=== PATIENT | male | born 1965 | race Caucasian/White ===

== ENCOUNTER 2021-07-07 12:09 | Outpatient (RCR) | payer OTHER, SELFPAY ==
--- NOTE | 2021-07-07 13:04 | REHOPWC ---
SEATING EVALUATION NOTIFICATION This is to notify provider that Wolf Meléndez participated in a scooter power mobility device evaluation today. Recommendations were made specific to patient's needs. Seating Assessment documentation has been completed for detailed information on required equipment. The mobility device provider for this case is Rowdy from [employer]. Please note that no further care plan will be developed on this account. Thank you for referring this patient to [facility]. Please review, sign, date and return this discharge summary HAN. I have been updated about the patient's current status and I agree with discharge from the above service at this time. Referring Physician Date
== END 2021-07-08 08:17 | disposition home or self-care (01) ==
LOC: ANHPT 12:09
PROVIDERS: PCP Physician Assistant; Visit Provider Physician Assistant
DX: Z46.89 Encounter for fitting and adjustment of other specified devices (principal); I63.9 Cerebral infarction, unspecified
CPT/HCPCS: 97162

== ENCOUNTER 2024-12-11 09:57 | Outpatient (CLI) | payer OTHER, SELFPAY ==
--- NOTE | 2024-12-11 10:06 | ECG_ITS ---
Test Date: 2024-12-11 10:24:21 Measurements Intervals [place] Rate: 79 P: 68 KS: 159 QRS: 31 QRSD: 90 T: 13 QT: 354 QTc: 406 Interpretive Statements SINUS RHYTHM WITH OCCASIONAL VENTRICULAR PREMATURE COMPLEXES DELAYED PRECORDIAL R/S TRANSITION MINIMAL Q WAVES- INFERIOR LEADS BORDERLINE T WAVE ABNORMALITY- INF/HIGH LAT LEADS BASELINE ARTIFACT- I, II, III, AVR, AVL, AVF BORDERLINE ECG No previous ECG available for comparison Electronically Signed On 12-11-2024 10:37:51 CDT by Kashif Abdul D.O.
--- OUTSIDE RECORDS SUMMARY | 2024-12-11 11:01 | XMS_ITS | Clinical Summary ---
Author Organization [facility] Address [address] [place] [address] Care Team Providers Care Arc Welder Name Role Phone Mike Taylor APRN-ENVELOPE CUTTER Primary Care Provider Source Comments [facility],non-owned Affiliates and Associated Physician Practices is amultiple site organization consisting of ambulatory clinics and hospital sitesin [place], [place], [place]. This disclosure is being madepursuant to the Care Everywhere program and may not contain all information available regarding this patient. Last updated 18.[facility] Allergies No known active allergies Medications * Be aware that medications may not be up to date on this document. Alwaysverify current medications with the patient. clopidogrel (PLAVIX) 75 MG tabletIndication s:H/O ischemic left CROSSING WATCHMAN stroke,Status post placement of implantable loop recorder,PFO (patent foramen ovale) (HCC),Carpal tunnel syndrome of right wrist,Essential hypertension TAKE ONE TABLET BY MOUTH ONCE DAILY 30 tablet 5 04/04/20 20 Active Additional Information Patient not taking.Reported on 03/12/2021 amLODIPine (NORVASC) 5 MG tablet TAKE 1 TABLET BY MOUTH EVERY DAY 90 tablet 3 08/04/19 22 Active furosemide (LASIX) 20 MG tablet TAKE 1 TABLET BY MOUTH EVERY DAY 90 tablet 1 01/02/20 22 Active carvedilol (COREG) 12.5 MG tablet Take 12.5 mg by mouth 2 times daily with morning and evening meal Suspended atorvastatin (LIPITOR) 80 MG tablet Take 1 tablet by mouth at bedtime 30 tablet 3 10/25/19 19 Suspended VENTOLIN HFA 108 (90 Base) MCG/ACT inhaler 10/18/19 19 Suspended Alcohol Swabs (B-D SINGLE USE SWABS REGULAR) 11/12/19 19 Suspended TRUE METRIX BLOOD GLUCOSE TEST test strip 11/16/19 19 Suspended TRUEPLUS LANCETS 33G MISC 11/16/19 19 Suspended Albuterol Sulfate 108 (90 Base) MCG/ACT Inhale 180 mcg by mouth as needed Suspended metFORMIN (GLUCOPHAGE) 1000 MG tablet Take 1,000 mg by mouth 2 times daily Suspended losartan (COZAAR) 100 MG tablet Take 100 mg by mouth once daily 10/06/19 20 Suspended aspirin buffered (BUFFERIN LOW DOSE) 81 MG tablet Take 81 mg by mouth once daily Suspended WIXELA INHUB 250-50 MCG/DOSE inhaler 01/28/20 20 Suspended hydrOXYzine hcl (ATARAX) 10 MG tablet 01/22/20 20 Suspended sertraline (ZOLOFT) 50 MG tablet TAKE 1 TABLET BY MOUTH EVERY MORNING FOR 30 DAYS 01/28/20 20 Suspended cyclobenzaprine (FLEXERIL) 5 MG tablet Take 5 mg by mouth every 8 hours 08/03/19 21 Suspended naproxen (NAPROSYN) 500 MG tablet naproxen 500 mg tablet Suspended senna-docusate (SENEXON-S) 8.6-50 MG tablet Take 1 tablet by mouth once daily Suspended Active Problems Problem Noted Date Diagnosed Date MILTON (obstructive sleep apnea) 02/19/2020 Assessment & Plan (02/19/2020 10:08 AM CDT): Encouraged compliance with CPAP. SOB (shortness of breath) 12/20/2019 Assessment & Plan (02/19/2020 10:09 AM CDT): Suspect Multifactorial, Chronic Diastolic Heart Failure versus COPD versus untreated MILTON, and Obesity, versus arrhythmia versus drop in EF, Associated with lower extremity swelling and abominal swelling, PND an orthopnea, improved on Lasix 20mg daily, as pt was previously on this. Check ECHO to rule decreased in EF versus SOB being attributed to HFpEF. Assessment & Plan (12/20/2019 5:42 PM CDT): Suspect Multifactorial, Acute on Chronic Diastolic Heart Failure versus COPD, versus arrhythmia versus drop in EF, Associated with lower extremity swelling and abominal swelling, PND an orthopnea, resume Lasix 20mg daily, as pt was previously on this. Check ECHO to rule decreased in EF versus SOB being attributed to HFpEF. Acute on chronic diastolic heart failure 020 Assessment & Plan (05/20/2020 10:11 AM INTERPRETATIVE DANCER): With worsening SOB and volume overloaded. When seen. Will resume Lasix and I did ask that we re-check ECHO, he did not have that done. Continue 20mg daily of lasix and pt states his SOB and LLANOS are at baseline. ECHO when able, continue coreg and losartan. Assessment & Plan (02/19/2020 10:07 AM CDT): Improved, continue lasix 20mg daily. Check ECHO, Losartan and BB. Await ECHO to rule out worsening EF or valvular dysfucntion as contributing to his SOB. Assessment & Plan (12/20/2019 5:43 PM CDT): With worsening SOB and volume overloaded. Will resume Lasix and check ECHO. 20mg daily, BMP in one week. ECHO when able, continue coreg and losartan. PFO (patent foramen ovale) 02/15/2019 Assessment & Plan (05/20/2020 10:07 AM INTERPRETATIVE DANCER): Plans for closure in follow up with Dr. Solano. Assessment & Plan (02/19/2020 9:53 AM CDT): Plans for closure per Dr. Vivar. Assessment & Plan (12/20/2019 5:37 PM CDT): Plans for closure per Dr. Vivar. Assessment & Plan (10/11/2019 4:48 PM CDT): Discussed diagnosis and PFO closure procedure today again, and he recalls the essential details. He has not called to have this scheduled due to several personal and family issues that have arisen. He now wants us to proceed and we discussed that during the COVID period, we are not doing these types of procedures, but will call him and schedule when we are able to perform the procedures again. In the interim - he remains on plavix daily. Advised to continue Assessment & Plan (02/15/2019 3:43 PM CDT): Given recent stroke and GOPI proven PFO - believe that current evidence strongly supports percutaneous closure of the PFO to reduce subsequent stroke risk. Discussed this procedure with he and his today in detail. Following the procedure, would treat with asa 81 mg QD and clopidogrel 75 mg qd for 6 months, then decrease to 81 mg ASA qd. He states that he would like to think over this option and will call back to let us know if he wants to move forward. Cerebrovascular accident (CVA) 02/15/2019 Assessment & Plan (05/20/2020 10:09 AM INTERPRETATIVE DANCER): ASA, statin, and Plavix, plan PFO closure per Dr. Solano in follow up. Await Recs. Assessment & Plan (12/20/2019 5:45 PM CDT): ASA, statin, and Plavix, plan PFO closure when able do preform elective procedures gain in light of COVID-19. Status post placement of implantable loop record er 02/15/2019 Assessment & Plan (05/20/2020 10:08 AM INTERPRETATIVE DANCER): No events. Follow. Assessment & Plan (02/19/2020 10:05 AM CDT): No events. Assessment & Plan (12/20/2019 5:39 PM CDT): No data transmitted since 05/2019, will review with EP team in attempts to troubleshoot. Assessment & Plan (02/15/2019 3:45 PM CDT): No events noted since placement. Reminded them that this is placed for the potential of atrial fibrillation - if that would be detected, we would discuss other therapeutic options to decrease stroke risk. As it has not shown AF to date - no other indication for anticoagulation at this time. Weakness 10/21/2018 Cellulitis of left lower extremity 03/03/2018 Diabetes mellitus type 2 in obese 03/03/2018 Overview (10/05/2023): Last Assessment & Plan: A1c 7.3 02/2018. On home metformin. - Hold home metformin - LDSSI IMO Update October 2023 Essential hypertension 03/03/2018 Overview (02/15/2019): Last Assessment & Plan: Continue home coreg Assessment & Plan (05/20/2020 10:07 AM INTERPRETATIVE DANCER): Per Pt report his BP is closer to 130 at home. Continue Losartan 100mg daily, Coreg 12.5mg BID. Start Norvasc 5mg daily. Assessment & Plan (02/19/2020 10:04 AM CDT): Per Pt report his BP is closer to 120 at home, he has follow up with his PCP tomorrow. Continue Losartan 100mg daily, Coreg 125mg BID. Consider Norvasc 5mg daily if BP remains elevated. Assessment & Plan (12/20/2019 5:37 PM CDT): Pt does not have a BP cuff at home, continue current regimen. Chronic obstructive pulmonary disease 02/18/2011 Overview (02/15/2019): Last Assessment & Plan: On baseline 2 L home O2. Pt states not on any home inhalers. - Continue PRN albuterol - 2 L home O2 Encounters Date Type Department Care Team Description 03/03/2018 1:22 PM CDT - Present Hospital Encounter [facility] BED [facility] [address] [place] [address] Ghulam Mckay MD Internal Medicine from Last 3 Months Immunizations Immunization Administration Dates Next Due FLU VACCINE TRI IIV3 SPLIT P F IM (FLUVIRIN) 05/04/2012,03/05/2011,05/20/2010,2009 PNEUMOCOCCAL PPSV23 07/31/2009 Family History Medical History Relation Name Comments COPD - Chronic Obstructive Pulmonary Disease Father COPD - Chronic Obstructive Pulmonary Disease Mother CVA Mother Diabetes - Type 2 Mother Relation Name Status Comments Father Mother Social History Tobacco Use Types Packs/Day Years Used Date Smoking Tobacco: Former Cigarettes Q uit: 07/2009 Smokeless Tobacco: Never Alcohol Use Standard Drinks/Week Comments No 0 (1 standard drink = 0.6 oz pur e alcohol) Sex and Gender Information Value Date Recorded Sex Assigned at Not on file Legal Sex Male 1:20 PM CDT Gender Identity Not on file Sexual Orientation Not on file Occupation Industry Job Start Date Job End Date Disabled since 2009 Not on file Not on file Not on f ile Last Filed Vital Signs Vital Sign Reading Time Taken Comments Blood Pressure 150/82 03/12/2021 10:15 AM CDT Pulse 90 03/12/2021 10:15 AM CDT Temperature 36.2 C (97.2 F) 09/11/2020 8:53 AM INTERPRETATIVE DANCER Respiratory Rate 18 10/24/2018 3:57 PM CDT Oxygen Saturation 99% 03/12/2021 10:15 AM CDT 3 L o2 Inhaled Oxygen Concentration 28% 10/24/2018 1 0:00 AM CDT Weight 122.5 kg (270 lb) 03/12/2021 10:15 AM CDT Height 170.2 cm (5' 7) 03/12/2021 10:15 AM CDT Body Mass Index 42.29 03/12/2021 10:15 AM CDT Plan of Treatment Health Maintenance Due Date Last Done Comments COLOGUARD (AGES 45-75) - COLON CA SCREENING 1967 COLON MONITORING 1967 COLONOSCOPY - COLON CA SCREENING 1967 CT COLONOGRAPHY - COLON CA SCREENING 1967 Colorectal Cancer Screening 1967 FIT - COLON CA SCREENING 1967 FLEX SIG - COLON CA SCREENING 1967 HIV SCREENING 1982 HEPATITIS C SCREENING 07/11/1985 DTAP/TDAP/TD VACCINES (1 - Tdap) 1986 HEPATITIS B VACCINE (1 of 3 - 19+ 3-dose series) 1986 DIABETES-STATIN 2007 PNEUMOCOCCAL VACCINE 50+ (2 of 2 - PCV) 07/31/2010 07/31/2009 ZOSTER VACCINE (1 of 2) 2017 DIABETES RETINOPATHY SCREENING 02/15/2019 DIABETES-FOOT EXAM WITH MONOFILAMENT 02/15/2019 DIABETES-SERUM CREATININE 10/24/2019 10/23/2018, DIABETES-HGB A1C 08/12/2021 02/09/2021, , 03/03/2018, Additional history exists COVID-19 VACCINE ( season) 2024 DEPRESSION SCREENING 07/05/2024 DIABETES - URINE PROTEIN SCREENING 07/05/2024 10/23/2016 INFLUENZA VACCINE (Season Ended) 2025 05/04/2012, 03/05/2011, 05/20/2010, Additional history exists HIB VACCINE Aged Out No longer eligi ble based on patient's age to complete this topic HPV VACCINE Aged Out No longer eligi ble based on patient's age to complete this topic MENINGOCOCCAL (Group B) VACCINE SHARED DECISION-MAKING Aged Out No longer eligible based on patient's age to complete this topic MENINGOCOCCAL GROUPS A/C/Y/W VACCINE Aged Out No longer eligible based on patient's age to complete this topic Medical Devices Implanted Type Area Cut Off Saw Set Up Operator Device Identifier Shelf Expiration Date Model / Serial / Lot Sys Crd Mntr Rvl Linq [employer] Ins - [id number] Implanted:Qty: 1 on 11/02/2018 by Demar Solano MD at [facility] Chest [employer] 06/01/2019 LINQSYS / [id number] / Description:Reveal loop suleiman rder Procedures * The patient is currently admitted. The information in this section might not be complete until the patient is discharged. Procedure Name Priority Date/Time Associated Diagnosis Comments BASIC METABOLIC PANEL (CALCIUM TOTAL) STAT 10/23/2018 7:05 AM CDT HEMOGLOBIN A1C HAN 10/21/2018 9:31 AM CDT from Last 3 Months or Most Recently Relevant to Health Maintenance Results * (ABNORMAL) BASIC METABOLIC PANEL (CALCIUM TOTAL) (10/23/2018 7:05 AM CDT) BUN 12 7 - 26 mg/dL 10/23/2018 7:35 AM CDT [facility] Creatinine 0.8 0.6 - 1.2 mg/dL 10/23/2018 7:35 AM [facility] Sodium 137 136 - 145 mmol/L 10/23/2018 7:35 AM [facility] Potassium 4.3 3.5 - 4.5 mmol/L 10/23/2018 7:35 AM [facility] Chloride 97(L) 98 - 107 mmol/L 10/23/2018 7:35 AM [facility] CO2 30(H) 22 - 29 mmol/L 10/23/2018 7:35 AM [facility] Glucose 138(H) 70 - 115 mg/dL 10/23/2018 7:35 AM [facility] Calcium 9.6 8.4 - 10.2 mg/dL 10/23/2018 7:35 AM [facility] Anion Gap 14 8 - 18 10/23/2018 7:35 AM [facility] BUN/Creatinine Ratio 15 7 - 23 10/23/2018 7:35 AM [facility] Osmolality Calculated 286 270 - 300 mOsm/kg 10/23/2018 7:35 AM [facility] eGFR >60 >60 mL/min/1.7 3 m2 10/23/2018 7:35 AM [facility] Blood BLOOD SPECIMEN / Unknown Lab Venipuncture / Unknown 10/23/2018 7:05 AM T 10/23/2018 7:15 AM [facility] us Tere Salguero MD LAB - CHEMISTRY ORDERABLE S Final Result [address] [phone] * (ABNORMAL) HEMOGLOBIN A1C (10/21/2018 9:31 AM [facility]) Hemoglobin A1c 7.3(H) 4.4 - 6.3 % 10/21/2018 2:45 PM [facility] Estimated Average Glucose 163 mg/dL 10/21/2018 2:45 PM [facility] Comment: HbA1c Interpretation: Treatment target values recommended by ADA and other clinical organizations should be used to evaluate metabolic control in patients. Treatment Target Values: Normal : < 5.7% Pre-diabetes: 5.7-6.4% Diabetes: Equal to or greater than 6.5% Reference: [place] Diabetes Association Standards of Care in Diabetes -2014 In patients 70 years and older consider HbA1c target range of 7.0-7.5% Reference: Diabetes Mellitus in Older People: Position Statement on behalf of the International Association of Gerontology and Geriatrics (IAGG), the Diabetes Working Alliance Party for Older People (EDWPOP), and the International Task Force of Experts in Diabetes. Dario Cox et al. J [place] Medical Directors Association. 2012 Test results diagnostic of diabetes should be repeated for confirmation. The Sebia Capillary 2 assay for the measurement of HbA1c is a National Glycohemoglobin Standardization Program (NGSP)certified method. Blood BLOOD SPECIMEN / Unknown Venipuncture / Unknown 10/21/2018 9:31 AM CDT 10/21/2018 9:33 AM CDT Cisco Lion MD LAB - CHEMISTRY ORDERABLES Final Result Performing Organization Address City/State/[facility] Co de Phone Number [address] [phone] from Last 3 Months or Most Recently Relevant to Health Maintenance Insurance [facility] Advance Directives * Full Code (Latest Code Status on File) Date Activated Date Inactivated Comments 10/21/2018 8:40 AM 10/24/2018 7:15 PM Care Teams Arc Welder Relationship Specialty Start Date End Date Mike Taylor, GIS DATABASE ADMINISTRATOR-ENVELOPE CUTTER [address] [place] [address] PCP - General Nurse Practitioner 10/21/18
--- OUTSIDE RECORDS SUMMARY | 2024-12-11 11:01 | XMS_ITS | Clinical Summary ---
Author Organization [facility] Address [address] [address] Phone Care Team Providers Care Office Helper Name Role Phone Robert Taylor Primary Care Provider Allergies No known active allergies Medications Aspirin 81 MG Tablet Take 81 mg by mouth daily. Active metFORMIN (GLUCOPHAGE) 1000 MG Tablet Take 1,000 mg by mouth 2 times daily (with meals). Active carvedilol (COREG) 12.5 MG Tablet Take 12.5 mg by mouth 2 times daily. Active clopidogrel (PLAVIX) 75 MG Tablet Take 75 mg by mouth daily. Active atorvastatin (LIPITOR) 80 MG Tablet Take 80 mg by mouth nightly. Active insulin glargine (BASAGLAR KWIKPEN) 100 UNIT/ML Solution Pen-injector 10 Units by Subcutaneous route nightly. Active albuterol (VENTOLIN HFA) 108 (90 Base) MCG/ACT Aerosol Solution take 2 Puffs by inhalation every 4 hours as needed for Cough or Wheezing. Active OXYGEN CONCENTRATOR take 2 L by inhalation continuous. pt may use portable O2 tanks when not using O2 concentrator 9 Active OXYGEN TANK PORTABLE take 2 L by inhalation continuous. pt may use O2 concentrator when not using portable tanks 9 Active Social History Tobacco Use Types Packs/Day Years Used Date Smoking Tobacco: Never Assessed Sex and Gender Information Value Date Recorded Sex Assigned at Not on file Legal Sex Male 4:05 PM CDT Gender Identity Not on file Sexual Orientation Not on file Last Filed Vital Signs Vital Sign Reading Time Taken Comments Blood Pressure 144/88 11/18/2018 9:58 AM CDT Pulse 55 11/18/2018 9:58 AM CDT Temperature 36.5 C (97.7 F) 11/18/2018 9:58 AM CDT Respiratory Rate 20 11/18/2018 9:58 AM CDT Oxygen Saturation 92% 11/18/2018 9:5 8 AM CDT 2L of home oxygen Inhaled Oxygen Concentration - - Weight 115.2 kg (254 lb) 11/18/2018 9:5 8 AM CDT Height 170.2 cm (5' 7) 10/27/2018 3:50 PM CDT Body Mass Index 39.78 10/27/2018 3:50 PM CDT Plan of Treatment Not on file Insurance MEDICAID [employer] Advance Directives * Full Code (Latest Code Status on File) Date Activated Date Inactivated Comments 11/09/2018 10:19 AM Care Teams Office Helper Relationship Specialty Start Date End Date Robert Taylor PA [address] [place] [address] PCP - General Physician Break Off Worker 10/25/18
--- OUTSIDE RECORDS SUMMARY | 2024-12-11 11:01 | XMS_ITS | Encounter Summary ---
Author Organization [facility] Address [address] [place] [address] Care Team Providers Care Title Closer Name Role Phone Unavailable Primary Care Provider Unavailabl e Reason for Visit * Auth/Cert Specialty Diagnoses / Procedures Referred By Mehdi t Referred To Contact Diagnoses CELLULITIS Referral ID Status Reason Start Date Expiration Date Visits Re quested Visits Authorized [id number] 1 1 Encounter Details Date Type Department Care Team (Latest Contact Info) Description 03/03/2018 1:22 PM CDT - Present Hospital Encounter [facility] BED [facility]ANN[facility] [address] [place] [id number] Ghulam Mckay MD [address] [place] [address] Internal Medicine Social History Tobacco Use Types Packs/Day Years [...] Not on file Not on f ile documented as of this encounter Plan of Treatment Not on file documented as of this encounter Visit Diagnoses Diagnosis Cellulitis of left lower extremity- Primary Cellulitis and abscess of leg, except foot Cellulitis of left lower extremity Cellulitis and abscess of leg, except foot documented in this encounter
--- OUTSIDE RECORDS SUMMARY | 2024-12-11 11:01 | XMS_ITS | CONTINUITY OF CARE DOCUMENT ---
Author Name srini, srini Address Unknown Organization [facility] Address [address] [place] [address] Phone [phone] Care Team Providers Care Air Traffic Supervisor Name Role Phone Karin Dior MD Unavailable BEN HERNDON Unavailable [phone] BEN HERNDON Unavailable [phone] PROBLEMS Condition Status Date Provider Notes COPD active Sachin Myrick HTN active Karin Dior MD Hx of Cardiomyopathy active Karin mckay MD Sleep apnea, obstructive - on CPAP active Sandy Dior MD Diabetes mellitus active Karin Dior MD Hyperlipidemia active Karin Dior MD Obesity active Karin Dior MD PVC's active Karin Dior MD Tobacco use, quit active Ronal [facility] ENCOUNTERS Date Type Provider Location Encounter Diag nosis - In-person encounter Office Visit Karin Dior MD [place] [facility] - In-person encounter Office Visit Karin Dior MD [place] [facility] Hx of CardiomyopathySleep apnea, obstructive - on CPAPPVC'sTobacco use, quit - In-person encounter Office Visit Karin Dior MD [place] [facility] HTNHx of CardiomyopathySleep apnea, obstructive - on CPAPDiabetes mellitusHyperlipidemiaObesity VITAL SIGNS Date Observation Value Provider Body Mass Index (Ratio) 39.95 kg/m2 James Dior MD blood pressure, diastolic 80 mm[Hg] Yan louie Reyes blood pressure, systolic 140 mm[Hg] Vijaya dallas [place] oxygen saturation, oximetry 93 % [place] Reyes respiratory rate E&M 16 /min [place] Reyes pulse rate 70 /min [place] Reyes weight E&M 262.8 [lb_av] Constance Reyes height E&M 68 [in_i] [facility] Body Mass Index (Ratio) 40.44 kg/m2 Peña Colindres blood pressure, resting Yes Peña Colindres blood pressure, cuff size large Ke phillyi Silvestre blood pressure, diastolic 83 mm[Hg] Ke rri Silvestre blood pressure, systolic 143 mm[Hg] Alonso Rivers oxygen saturation, oximetry 93 % Anna Rivers respiratory rate E&M 16 /min Anna Anne [place] pulse rate 79 /min Anna June [facility] weight E&M 266 [lb_av] Anna June [facility] height E&M 68 [in_i] Anna June [facility] blood pressure, diastolic 106 mm[Hg] Ke rri Silvestre blood pressure, systolic 180 mm[Hg] Alonso ri Silvestre pulse rate 68 /min Anna Humphreye ahmet oxygen saturation, oximetry 95 % Anna Silvestre respiratory rate E&M 16 /min Anna G shakeel Body Mass Index (Ratio) 41.20 kg/m2 Pascal jackie Rivers weight E&M 271 [lb_av] Anna Humphreye lder height E&M 68 [in_i] Anna Watkins lder ALLERGIES No Known Drug Allergies HISTORY OF MEDICATION USE Medication Status Instructions Dates Provider Indications Com ments MAGNESIUM OXIDE 400 MG ORAL TABLET active ONE TAB TWICE A DAY Karin Dior MD LASIX 20 MG ORAL TABLET completed take one pill a day - Constance Reyes EQ OMEPRAZOLE TABLET DELAYED RELEASE completed take one cha day - [place] Reyes LIPITOR 20 MG ORAL TABLET completed take one pill a day - Constance Reyes METFORMIN HCL 1000 MG ORAL TABLET active One tablet twice a day Ronal Colindres LISINOPRIL 20 MG ORAL TABLET completed take onepill a day - Constance Reyes COREG 12.5 MG ORAL TABLET active take one pill twice a day Anna Rivers SOCIAL HISTORY Date Observation Value Provider social history E&M S moking History: Juanito purdy is a former smoker. Karin Dior MD social history reviewed E&M revi ewed - no changes required Karin Dior MD alcohol use no Constance [place] smoking, year quit 2009 Constance Bishop jesu number of years as a smoker 25 a Constance [place] smoking history, tot al pack/day [facility] Former smoker Constance [facility] social history reviewed E&M revi ewed - no changes required Ronal Colindres alcohol use no Anna bowers smoking, year quit 2009 Anna hernandez number of years as a smoker 25 a Anna Rivers smoking history, tot al pack/day 3 Ronal Colindres cigarette use yes Anna doss smoking status Former smoker Anna oliveira social history E&M Smoking Histo ry: P gurwinder is a former smoker. Karin Dior MD social history reviewed E&M revi ewed - no changes required Karin Dior MD alcohol use no Anna Watkins ahmeter number of years as a smoker 25 a Anna Silvestre smoking history, tot al pack/day 3ppd Anna Silvestre smoking, year quit 2009 Anna Valenzuela mary cigarette use yes Anna Tyserenityleslie doss smoking status Former smoker Anna Lares tee FAMILY HISTORY Family Member Condition Mother Family History of Hy pertension: Mother Family History of CV A or Stroke: INSURANCE PROVIDERS Payer name Policy type / Coverage type [place] [employer] [place] [employer] Medicaid [id number] ADVANCE DIRECTIVES Name Date DISCUSSED - NO DECISION MADE TREATMENT PLAN Date Name Performer Electrophysiology: T he following medications were removed from the medication list: Lisinopril 20 Mg Oral Tablet (Lisinopril) ..... Take onepill a day His updated medication list for this problem includes: Metformin Hcl 1000 Mg Oral Tablet (Metformin hcl) ..... One tablet twice a day Karin Dior MD Electrophysiology: T he following medications were removed from the medication list: Lipitor 20 Mg Oral Tablet (Atorvastatin calcium) ..... Take one pill a day Karin Dior MD Electrophysiology:Th e patient is using CPAP on a regular basis. The patient has been benefiting from therapy and should continue use. Karin Dior MD Electrophysiology: B P today: 140/80 P rior BP: 143/83 (08/07/2016) Karin Dior MD Electrophysiology: T he following medications were removed from the medication list: Lisinopril 20 Mg Oral Tablet (Lisinopril) ..... Take onepill a day His updated medication list for this problem includes: Coreg 12.5 Mg Oral Tablet (Carvedilol) ..... Take one pill twice a day Karin Dior MD Cardiology Follow up :Weight loss and exercise encouraged. Ronal Colindres Cardiology Follow up :Orders: S NOMED-CT: [id number] Current Medications Documented ([id number]) obile Cardiac Tele (CPT-53433) His updated medication list for this problem includes: Lasix 20 Mg Oral Tabs (Furosemide) ..... Take one pill a day Lisinopril 20 Mg Oral Tabs (Lisinopril) ..... Take onepill a day Coreg 12.5 Mg Oral Tabs (Carvedilol) ..... Take one pill twice a day Ronal Colindres Cardiology Follow up :BP today: 143/83 P rior BP: 180/106 (04/10/2016) His updated medication list for this problem includes: Lasix 20 Mg Oral Tabs (Furosemide) ..... Take one pill a day Lisinopril 20 Mg Oral Tabs (Lisinopril) ..... Take onepill a day Coreg 12.5 Mg Oral Tabs (Carvedilol) ..... Take one pill twice a day Ronal Colindres Cardiology Follow up :Orders: S NOMED-CT: [id number] Current Medications Documented ([id number]) E KG (CPT-33745) obile Cardiac Tele (CPT-90387) His updated medication list for this problem includes: Lisinopril 20 Mg Oral Tabs (Lisinopril) ..... Take onepill a day Coreg 12.5 Mg Oral Tabs (Carvedilol) ..... Take one pill twice a day Ronal Colindres Cardiology Follow up:On CPAP. Tim Colindres Cardiology Follow up :His updated medication list for this problem includes: Metformin Hcl 1000 Mg Oral Tabs (Metformin hcl) ..... One tablet twice a day Lisinopril 20 Mg Oral Tabs (Lisinopril) ..... Take onepill a day Ronal Colindres Cardiology Follow up Ronal flores [facility] [place] nt faxed 04/14/16:Has not had a sleep study in years and is not being treated at this time. Will repeat titration sleep study Karin Dior MD Cardiology Duglas Gilman nt faxed 04/14/16:His updated medication list for this problem includes: Glucophage Tabs (Metformin hcl tabs) ..... 1000mg take one pill twice daay Lisinopril 20 Mg Oral Tabs (Lisinopril) ..... Take onepill a day Karin Dior MD Cardiology Duglas Gilman faxed 04/14/16:His updated medication list for this problem includes: Lipitor 20 Mg Oral Tabs (Atorvastatin calcium) ..... Take one pill a day Karin Dior MD Cardiology Duglas Gilman faxed 04/14/16:Orders: Renal Artery Duplex (CPT-67160) BP today: 180/106 His updated medication list for this problem includes: Lasix 20 Mg Oral Tabs (Furosemide) ..... Take one pill a day Lisinopril 20 Mg Oral Tabs (Lisinopril) ..... Take onepill a day Coreg 12.5 Mg Oral Tabs (Carvedilol) ..... Take one pill twice a day Karin Dior MD Cardiology Duglas Gilman faxed 04/14/16:His last echo in 02/15 showed EF 55%. Will repeat echo Kairn Dior MD Date Name DLCO - 90299 FRC - 81003 FVC - 99547 ZIO Event Complete Echo Mobile Cardiac Tele Sleep Study Titratio n Renal Artery Duplex Complete Echo HISTORY OF PROCEDURES Procedure Date Procedure Name Provider Procedure Notes S tatus FVC / MVV with bronchodilator - 31938 Karin Dior MD completed BLOOD COUNT HEMOGLOBIN Karin ragland MD completed FRC - 69857 Karin ramirez MD completed SpO2 w/o 6min walk/titration Karin Dior MD completed DLCO - 11693 Karin ramirez MD completed EKG Karin ramirez MD completed SNOMED-CT: [id number] Current Medications Documented Karin Dior MD completed Event Monitor Karin ramirez MD completed SNOMED-CT: 43556369 Physical Exam, Performed: Pulse Exam of Foot Karin Dior MD completed EKG Karin ramirez MD completed SNOMED-CT: 721729165092415 Current Medications Documented Karin Dior MD completed SNOMED-CT: 65087344 Physical Exam, Performed: Pulse Exam of Foot Karin Dior MD completed EKG Karin ramirez MD completed SNOMED-CT: [id number] Current Medications Documented Karin Dior MD completed
[2024-12-11 11:18] LABS: Anion Gap 10 mmol/L (4-12); Blood Urea Nitrogen 15 mg/dL (9-20); Calcium 9.7 mg/dL (8.4-10.2); Carbon Dioxide 28 mmol/L (22-30); Chloride 98 mmol/L (98-107); Estimated Glomerular Filt Rate > 60; Glucose 119 mg/dL (65-110); Potassium 4.2 mmol/L (3.4-5.0); Sodium 136 mmol/L (137-145)
== END 2024-12-11 09:58 | disposition home or self-care (01) ==
PROVIDERS: Anesthesiology; PCP Internal Medicine Gastroenterology; Visit Provider Orthopaedic Surgery
DX: R94.31 Abnormal electrocardiogram [ECG] [EKG] (principal); E11.9 Type 2 diabetes mellitus without complications; F17.210 Nicotine dependence, cigarettes, uncomplicated
CPT/HCPCS: 36415; 80048; 93005

== ENCOUNTER 2024-12-18 01:08 | Day surgery (SDC) | payer OTHER, SELFPAY ==
[2024-12-07 14:58] VITALS: BMI 38.0
--- NOTE | 2024-12-07 14:59 | PC.NURSE ---
Report to the Outpatient Waiting Room, entrance under the green pavilion located off [facility], at time _0900_ on date _[id number]_. Planned Procedure Time: _1100_.? Time changes happen often and if your time is changed the preop area will call you the afternoon before. - You and your visitor will be asked to self-screen and do not enter if you have any COVID symptoms. Please call surgeon if you need to reschedule. - A mask is optional within the hospital at this time. Patients may have clear liquids (water, carbonated beverages, clear teas, apple juice) until 3 hours prior to surgery with a maximum of 20 ounces. - No food from midnight until time of surgery and no smoking, or chewing tobacco (or any form of nicotine). No chewing gum, candy or mints. Take only the following medications with a SIP of water on the morning of surgery: ___Keppra, Aripiprazole and advair.____ DO NOT STOP ANY OF YOUR OTHER PRESCRIPTION MEDICATIONS PRIOR TO SURGERY EXCEPT THE FOLLOWING Hold all vitamins and supplements for 3 days per anesthesiologist. Medications to discontinue per physician Date to take last dose Please no make-up, nail prydeinig, hairspray, perfume, deodorant, or body powder the day of surgery.? No jewelry (including any body piercings) or valuables the day of surgery, leave them at home.? Please take a shower or bath the night before, or the morning of, surgery with an antibacterial soap.? Wear comfortable, loose fitting clothing.? - Jewelry must be removed prior to entering the operating room.? Rings and piercings that are not removed may be cut off. - The hospital will not accept responsibility for valuables.? - Please leave all valuables, including medications, at home the day of surgery. If you are going home after surgery, a licensed p d driver must drive you home.? - NO public transportation without another adult if you receive anesthesia. - We recommend that an adult stay with you for 24 hours following discharge. - We also recommend that you do not drive, make important decision, drink alcoholic beverages, or take any drugs that were not prescribed by your health care provider for at least 24 hours after your discharge time. Follow any additional instructions given to you from your surgeon. Telephone instructions given to __Joe__and asked if any additional questions and then verbalized understanding. Patient advised to call surgeon office or pre surgery nurse liaison [phone] if any additional questions.
--- NOTE | 2024-12-14 09:06 | PM.IMHP ---
H&P: HPI History of Present Illness Date/Time: 12/14/24 09:06 Chief Complaint: Patient has right knee pain. He has catching locking mechanical type symptoms. His MRI scan shows a meniscal tear. He has failed conservative treatment like to proceed with arthroscopic intervention with a partial meniscectomy. Review of Systems Musculoskeletal: Musculoskeletal: Reports arthralgias, Reports joint swelling and Reports stiffness Neurologic: Reports abnormal gait [facility] Family History Family History Mother Cerebrovascular accident Grandparent Cerebrovascular accident Social History Social History (Updated 11/14/24 @ 10:46 by Shantal Banegas [facility]) Smoking packs per day: 3 Smoking cigarettes per day: 60.0 Years smoked: 29 Smoking pack-years: 87.00 Smoking status: Former smoker Tobacco type: cigarettes Smoking end date: 12/07/10 Alcohol intake: former Alcohol use details: 30 years. Substance use: current Substance use type: marijuana Other substance usage details: Daily Do You Feel Safe in your Home?: Yes Lack of Transportation: No Lack of Food: Sometimes True Current Housing: I Have Housing Concerned About Future Housing: No Difficulty Paying Gas/Electric Bills: No Difficulty Paying for Meds: No Currently Unemployed: No Education: High School Diploma/GED Difficulty w/ Childcare or Family Care: No Living arrangements: with family Spiritual care concerns: No Meds Home Medications and Allergies Home Medications ?Medication ?Instructions ?Recorded ?Confirmed ?Type albuterol sulfate 90 mcg/actuation 1 puff inhalation Q4H PRN 11/02/24 12/07/24 History aerosol inhaler (Ventolin HFA) shortness of breath or wheezing aripiprazole 2 mg tablet 2 mg PO DAILY 11/02/24 12/07/24 History atorvastatin 80 mg tablet (Lipitor) 80 mg PO DAILY 11/02/24 12/07/24 History empagliflozin 25 mg tablet 25 mg PO DAILY 11/02/24 12/07/24 History (Jardiance) fluticasone 250 mcg-salmeterol 50 1 inh inhalation BID 11/02/24 12/07/24 History mcg/dose blistr powdr for inhalation (Advair Diskus) levetiracetam 500 mg tablet 500 mg PO DAILY 11/02/24 12/07/24 History losartan 100 mg tablet 100 mg PO DAILY 11/02/24 12/07/24 History metformin 500 mg tablet 1,000 mg PO BID 11/02/24 12/07/24 History omeprazole 20 mg capsule,delayed 20 mg PO DAILY 11/02/24 12/07/24 History release Allergies Allergy/AdvReac Type Severity Reaction Status Date / Time No Known Allergies Allergy Unverified 12/07/24 14:44 Exam Narrative: On exam the patient is morbidly obese. He has catching locking and pain with his right knee. He has mechanical symptoms with any manipulation. He is tender along the joint line. He has a positive Nora's. Neurologically he is grossly intact. He walks with an antalgic gait. Knee X-Ray 11/02/24 Orthopedics Result Report 11/02/24 Assessment and Plan Assessment and plan (1) Acute medial meniscus tear of right knee: Code(s): S83.241A - Other tear of medial meniscus, current injury, right knee, initial encounter Status: Acute Assessment and Plan: Patient has a medial meniscal tear right. He has failed conservative treatment like to consider arthroscopic intervention. I have discussed this with him in detail including the risks, benefits, limitations, and alternatives. He understands would like to proceed. Of note is the fact he is morbidly obese with a BMI of 38. Which will make surgery more difficult and recovery more difficult as well. We will proceed with arthroscopy partial medial meniscectomy proceed as indicated as discussed. (2) Morbid obesity: Code(s): E66.01 - Morbid (severe) obesity due to excess calories Status: Acute
[2024-12-18] VITALS (7 sets, daily range): BP systolic 112–149; BP diastolic 59–75; PULSE 67–86; RESP 14–18; TEMP 36.2–36.6; O2SAT 90–100
--- OUTSIDE RECORDS SUMMARY | 2024-12-18 01:10 | XMS_ITS | Clinical Summary ---
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 Name Role Phone Unavailable Primary Care Provider Unavailabl e Social History Tobacco Use Types Packs/Day Years Used Date Smoking Tobacco: Never Assessed Sex and Gender Information Value Date Recorded Sex Assigned at Not on file Legal Sex Male 9:42 PM CDT Gender Identity Not on file Sexual Orientation Not on file Last Filed Vital Signs Vital Sign Reading Time Taken Comments Blood Pressure 137/77 09/09/2015 8:48 AM [facility] Pulse 80 09/09/2015 8:48 AM [facility] Temperature - - Respiratory Rate - - Oxygen Saturation - - Inhaled Oxygen Concentration - - Weight 128.4 kg (283 lb) 09/09/2015 8:48 AM [facility] Height 170.2 cm (5' 7) 09/09/2015 8:48 AM [facility] Body Mass Index 44.32 09/09/2015 8:48 AM [facility] Plan of Treatment Health Maintenance Due Date Last Done Comments Colorectal Cancer Screening Colonoscopy (10 Years) 1967 Annual Physical 1970 Hepatitis C 1985 DTaP, Tdap and Td Vaccines ( 1 - Tdap) 1986 Hepatitis B Vaccines (1 of 3 - 19+ 3-dose series) 1986 Pneumococcal Vaccine: 50+ Ye ars (1 of 1 - PCV) 2017 Zoster Vaccines (1 of 2) 2017 COVID-19 Vaccine ( - 2023-2 5 season) 2024 Meningococcal B Vaccine Aged Out No l onger eligible based on patient's age to complete this topic Meningococcal Vaccine Aged Out No dagoberto mikki eligible based on patient's age to complete this topic RSV Immunizations Under 20 Months Aged Out No longer eligible based on patient's age to complete this topic
--- OUTSIDE RECORDS SUMMARY | 2024-12-18 01:10 | XMS_ITS | Encounter Summary ---
Author Organization [facility] Address [address] [place] [address] Care Team Providers Care Director Of Casino Marketing Name Role Phone Unavailable Primary Care Provider Unavailabl e Reason for Visit * Auth/Cert Specialty Diagnoses / Procedures Referred By Mehdi t Referred To Contact Diagnoses CELLULITIS Referral ID Status Reason Start Date Expiration Date Visits Re quested Visits Authorized [id number] 1 1 Encounter Details Date Type Department Care Team (Latest Contact Info) Description 03/03/2018 1:22 PM CDT - Present Hospital Encounter [facility] [address] [place] [id number] Ghulam Mckay MD [address] [place] [address] Internal Medicine Social History Tobacco [...]
--- OUTSIDE RECORDS SUMMARY | 2024-12-18 01:10 | XMS_ITS | Data Portability ---
Author Organization [facility] ([employer]) [facility], Main Office Address [address] [place] [address] Care Team Providers Care Cloth Printing Back Tender Name Role Phone ADAM HONEYCUTT Primary Care Provider ADAM HONEYCUTT Referring Provider Assessment Encounter Date Assessment Date Assessment LastModified by Organization Details LastModified Time 05/01/2024 05/01/2024 This note is dictated and transcribed by Identified Software. Soil Technician variances may occur. Despite proofreading, typographical errors may occur. Occasional wrong-word or 'hhept-h-sxjw' substitutions may have occurred due to the inherent limitations of voice recording. Read the chart carefully and recognize, using context, where substitutions have occurred. Not available 05/01/2024 11:27:32 05/08/2024 05/08/2024 This note is dictated and transcribed by [employer] Software. Soil Technician variances may occur. Despite proofreading, typographical errors may occur. Occasional wrong-word or 'woeec-b-arbj' substitutions may have occurred due to the inherent limitations of voice recording. Read the chart carefully and recognize, using context, where substitutions have occurred. Not available 05/08/2024 11:18:48 08/17/2024 08/17/2024 This note is dictated and transcribed by [employer] Software. Soil Technician variances may occur. Despite proofreading, typographical errors may occur. Occasional wrong-word or 'hxqot-w-rucb' substitutions may have occurred due to the inherent limitations of voice recording. Read the chart carefully and recognize, using context, where substitutions have occurred. Not available 08/22/2024 10:29:20 11/23/2024 11/23/2024 This note is dictated and transcribed by [employer] Software. Soil Technician variances may occur. Despite proofreading, typographical errors may occur. Occasional wrong-word or 'oknpj-h-iism' substitutions may have occurred due to the inherent limitations of voice recording. Read the chart carefully and recognize, using context, where substitutions have occurred. Not available 11/23/2024 11:06:38 Plan of Treatment Reminders Order Date Submit Date Provider Last Modified By Organization Details Last Modified Time Details Appointments Establish ed Patient 15 2024 10:00A M Anshu Wiley DPM Not available Not available Not available Lab None recorded. Referral None recorded. Procedures None recorded. Surgeries None recorded. Imaging None recorded. Medication Orders mometason e 0.1 % topical cream 2024 025 YAIMA [facility] [id number], [address], 08/24/2024 14:39:59 gentamici n 0.1 % topical cream 2023 024 [email or web address] [facility] [id number] [id number] [place], [address], 08/17/2024 11:05:31 Patient TargetsNo targets recorded. Patient Instructions Encounter Date Encounter Id Patient Instructions Last Modified By Organization Details Last Modified Time 08/24/2024 [id number] discussed findin g of external auditory eczema with patient. Prescribed mometasone to be applied topically once a day for symptom management. If symptoms continue to persist follow-up for a re-evaluation. Not available 08/24/2024 14:40:23 Reason for Referral None Reported. Problems Name Problem SNOMED Code Status Onset Date Resolution Date Notes Provider Name and Address Organization Details Recorded Time Pain of left hip joint 29749969737 9100 Active 2022 Not Available [facility] 3 19:21:00 Trochante mimi bursitis of left hip 11557017784 9103 Active 2022 Not Available [facility] 3 19:21:00 Ingrowing nail of toe of right foot 62124569795 697584 Active 2022 Anshu Wiley DPM [address] [facility], [facility] [address], [place], [address] , [facility] 3 10:49:47 Obese 336175829 Active 2023 Anshu Wiley DPM [address], [place], [address] , [facility] 4 10:27:30 Umbilical hernia 184617848 Active 2023 Anshu Wiley DPM [address], [place], [address] , [facility] 4 10:10:19 Celluliti s of right foot 92329350230 657802 Active 2023 Anshu Wiley DPM [address], [place], [address] , [facility] 4 11:35:16 Open wound of toe of right foot 78325528002 342648 Active 2023 Anshu Wiley DPM [address], [place], [address] , [facility] 4 10:52:45 Eczema of external auditory canal 22133857 Active 2024 MAUDE Middleton [address] [address], [place], [address] , [facility] 5 14:39:26 Porokerat osis 674419561 Active 2024 Anshu Wiley DPM [address], [place], [address] , [facility] 5 11:06:43 Pain in left foot 37704457225 9107 Active 2024 Anshu Wiley DPM [address], [place], [address] , [facility] 5 11:06:48 Disorder of lung 66680232 Completed 202002/20/2021 Not Available [facility] 3 04:36:31 Pain in toe 809592149 Active 2020 Not Available [facility] 3 19:21:00 Heart disease 06360186 Active 2020 Not Available [facility] 3 19:21:00 Carpal tunnel syndrome 12092405 Active Not Available [facility] 3 19:21:00 Tinea pedis 1449252 Active 2021 Not Available [facility] 3 19:21:00 Diabetes mellitus 46703338 Active 2020 Not Available [facility] 3 19:21:00 Dystrophi a unguium 05587149 Active 2020 Not Available [facility] 3 19:21:01 Notes:Medical History: 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 Procedures Surgical History Date Name Laterality Status Provider Name and Address Organization Details Recorded Time 5 Nail Debridement completed Anshu Wiley DPM [address], [place], [address], [employer] 11/23/2024 11:07:33 5 Callus Debridement, One completed Anshu Wiley DPM [address], [address], [place], [address], [employer] [facility] 11/23/2024 11:07:38 5 Nail Debridement completed Anshu Wiley DPM [address], [place], [address], [employer] [facility] 08/22/2024 10:32:14 4 Toenail avulsion completed Anshu Wiley DPM [address], [place], [address], [facility] 04/17/2024 11:33:31 4 Partial Nail Avulsion Chemical Matrixectomy-Ri ght completed Anshu Wiley DPM [address], [place], [address], [facility] 04/04/2024 15:50:35 4 Nail Debridement completed Anshu Wiley DPM [address], [place], [address], Valentin Uzhun [facility] 01/17/2024 10:18:31 4 Nail Debridement completed Anshu Wiley DPM [address], [place], [address], [employer] - [facility] 10/18/2023 10:27:22 3 Nail Debridement completed Anshu Wiley DPM [address], [place], [address], [employer] - [facility] 06/16/2023 14:15:23 3 Nail Debridement completed Anshu Wiley DPM [address], [place], [address], [facility] 03/15/2023 10:49:39 3 Nail Debridement completed Anshu Wiley DPM [address], [place], [address], [facility] 12/07/2022 15:01:15 3 Ortho - Cortisone Injection completed Otoniel Taylor MD [address], [place], [address], [facility] 11/10/2022 13:59:59 3 Ortho - Cortisone Injection completed Otoniel Taylor MD [address], [place], [address], [facility] [employer] [facility] 10/13/2022 14:05:41 Carpal tunnel surgery [facility] [employer] [facility] 10/13/2022 13:59:39 Imaging Results None recorded. Procedure Notes None recorded. Medical Equipment None Reported. Allergies No known drug allergies Medications Name Sig Start Date Stop Date Status Note LastModified by Organization Details LastModified Time atorvastati n 80 mg tablet TAKE 1 TABLET BY MOUTH EVERY DAY active Not Available Not Available No t Available prednisone 10 mg tablet TAKE 1 TABLET BY MOUTH TWICE A DAY FOR 10 DAYS active Not Available Not Available No t Available atorvastati n 20 mg tablet 04/11 completed Not Available Not Available Not Available carvedilol 12.5 mg tablet TAKE 1 TABLET BY MOUTH TWICE A DAY 10/17 completed Not Available Not Available Not Available albuterol sulfate 2.5 mg/3 mL (0.083 %) solution for nebulizatio n INHALE 3 ML BY NEBULIZAT ION 3 TIMES A DAY active Not Available Not Available No t Available levetiracet am 500 mg tablet TAKE 1 TABLET BY MOUTH TWICE A DAY active Not Available Not Available No t Available hydrocodone 5 mg-acetamin ophen 325 mg tablet 04/11 completed Not Available Not Available Not Available lisinopril 20 mg tablet 04/11 completed Not Available Not Available Not Available clindamycin HCl 150 mg capsule 02/20 completed Not Available Not Available Not Available cyanocobala min (vit B-12) 1,000 mcg tablet Take 1 tablet every day by oral route. 10/13 completed Not Available Not Available Not Available clopidogrel 75 mg tablet 10/13 completed Not Available Not Available Not Available amlodipine 5 mg tablet TAKE 1 TABLET BY MOUTH EVERY DAY 10/13 completed Not Available Not Available Not Available prednisone 10 mg tablets in a dose pack Take 1 tab by mouth, 3 times a day for 3 daysTake 1 tab by mouth 2 times a day for 2 daysTake 1 tab by mouth once a day for 1 day 01/16 completed Not Available Not Available Not Available magnesium oxide 400 mg (241.3 mg magnesium) tablet TAKE 1 TABLET BY MOUTH EVERY DAY 10/13 completed Not Available Not Available Not Available Kenalog 10 mg/mL suspension for injection Take 20 mg by injection route. 10/17 completed [facility]: 0003- 0494- 20 Not Available Not Available Not Available cephalexin 500 mg capsule 04/11 completed Not Available Not Available Not Available metformin 1,000 mg tablet TAKE 1 TABLET BY MOUTH TWICE A DAY BEFORE MEALS active Not Available Not Available No t Available promethazin e 25 mg tablet 04/11 completed Not Available Not Available Not Available Advair Diskus 250 mcg-50 mcg/dose powder for inhalation INHALE 1 PUFF BY MOUTH TWICE A DAY DIRECTED active Not Available Not Available No t Available omeprazole 20 mg capsule,del ayed release TAKE 1 CAPSULE BY MOUTH TWICE DAILY 30 MINUTES BEFORE A MEAL active Not Available Not Available No t Available gentamicin 0.1 % topical cream APPLY A SMALL AMOUNT TO THE AFFECTED AREA ON GREAT TOE WOUND 3 TIMES PER DAY 08/17 completed Not Available Not Available Not Available aspirin 81 mg chewable tablet CHEW ONE TABLET BY MOUTH DAILY active Not Available Not Available No t Available furosemide 20 mg tablet TAKE 1 TABLET BY MOUTH EVERY DAY 08/17 completed Not Available Not Available Not Available diazepam 10 mg tablet TAKE 1 TABLET BY MOUTH 1 HOUR BEFORE PROCEDURE , MAY REPEAT 1 TIME NEEDED FOR ANXIETY active Not Available Not Available No t Available albuterol sulfate HFA 90 mcg/actuati on aerosol inhaler INHALE 2 PUFFS BY MOUTH THREE TIMES A DAY NEEDED *USE A RESCUE INHALER ONLY* active Not Available Not Available No t Available ketoconazol e 2 % topical cream APPLY TO THE BOTTOM OF BOTH FEET DAILY NEEDED 10/13 completed Not Available Not Available Not Available hydroxyzine HCl 10 mg tablet TAKE 1 TABLET BY MOUTH THREE TIMES A DAY DIRECTED 08/17 completed Not Available Not Available Not Available losartan 100 mg tablet TAKE 1 TABLET BY MOUTH EVERY DAY IN THE MORNING active Not Available Not Available No t Available sertraline 50 mg tablet TAKE 1 TABLET BY MOUTH EVERY MORNING FOR 30 DAYS 06/10 completed Not Available Not Available Not Available naproxen 500 mg tablet active Not Available Not Available Not Available mometasone 0.1 % topical cream APPLY A THIN LAYER TO THE AFFECTED AREA(S) ONCE DAILY active Not Available Not Available No t Available amoxicillin 500 mg-potassiu m clavulanate 125 mg tablet TAKE 1 TABLET BY MOUTH EVERY 12 HOURS FOR 10 DAYS DIRECTED FOR TOE INFECTION 05/01 completed Not Available Not Available Not Available neomycin 3.5 mg/g-polymy florencia B 10,000 unit/g-dexa meth 0.1 % eye oint APPLY TO LEFT EYE 3 TIMES A DAY FOR 5 DAYS 08/17 completed Not Available Not Available Not Available cyclobenzap rine 5 mg tablet 10/13 completed Not Available Not Available Not Available Alcohol Prep Pads USE TWICE DAILY active Not Available Not Available No t Available albuterol 08/01 completed Not Available Not Available Not Available aripiprazol e 2 mg tablet TAKE 1 TABLET BY MOUTH EVERY DAY active Not Available Not Available No t Available Januvia 100 mg tablet TAKE 1 TABLET BY MOUTH EVERY DAY IN THE MORNING FOR 30 DAYS active Not Available Not Available No t Available Symbicort 160 mcg-4.5 mcg/actuati on HFA aerosol inhaler 04/11 completed Not Available Not Available Not Available GaviLyte-N 420 gram oral solution 04/11 completed Not Available Not Available Not Available Senexon-S 8.6 mg-50 mg tablet 08/17 completed Not Available Not Available Not Available ropivacaine (PF) 5 mg/mL (0.5 %) injection solution Take 20 mg by injection route. 10/17 completed Not Available Not Available Not Available Miconazorb AF 2 % topical powder APPLY TO THE AFFECTED AREA(S) BY TOPICAL ROUTE 2 TIMES PER DAY IN THE MORNING AND EVENING 10/17 completed Not Available Not Available Not Available OneTouch Verio test strips TEST TWICE DAILY FOR UNCONTROL LED DIABETES MELLITUS active Not Available Not Available No t Available Jardiance 10 mg tablet TAKE 1 TABLET BY MOUTH EVERY DAY active Not Available Not Available No t Available Jardiance 25 mg tablet TAKE 1 TABLET BY MOUTH EVERY DAY active Not Available Not Available No t Available Basaglmariel MosquedaikPen U-100 Insulin 100 unit/mL (3 mL) subcutaneou s 10/13 completed Not Available Not Available Not Available OneTouch Delica Plus Lancet 33 gauge USE TWICE DAILY DIRECTED active Not Available Not Available No t Available Vitals Date Recorded Body height Body mass index (BMI) Body weight Heart rate Respiratory rate Oxygen saturation Oxygen saturation in Arterial blood by Pulse oximetry Systolic blood pressure Diastolic blood pressure Provider Name and Address Organization Details Last Updated DateTime 5 170.18 cm 42.3 kg/m2 999848. 94 g 89 /min 14 /min 98 % 98 % 127 mm[Hg] 74 mm[Hg] Radha Shaw [facility] [employer] [facility] 5 11:12:05 Date Recorded Body height Body mass index (BMI) Body weight Body temperature Provider Name and Address Organization Details Last Updated DateTime 08/24/2024 170.18 cm 40.1 kg/m2 085213.37 g 97.8 [degF] Yadira Parada RN [facility] [employer] [facility] 08/24/2024 14:16:33 Date Recorded Body height Body mass index (BMI) Body weight Heart rate Respiratory rate Oxygen saturation Oxygen saturation in Arterial blood by Pulse oximetry Systolic blood pressure Diastolic blood pressure Provider Name and Address Organization Details Last Updated DateTime 5 170.18 cm 40.1 kg/m2 735217. 65 g 95 /min 14 /min 98 % 98 % 143 mm[Hg] 79 mm[Hg] Radha Shaw [facility] [employer] [facility] 5 10:50:32 Date Recorded Body height Body mass index (BMI) Body weight Heart rate Respiratory rate Oxygen saturation Oxygen saturation in Arterial blood by Pulse oximetry Systolic blood pressure Diastolic blood pressure Provider Name and Address Organization Details Last Updated DateTime 4 170.18 cm 42.3 kg/m2 594486. 94 g 82 /min 14 /min 98 % 98 % 135 mm[Hg] 84 mm[Hg] Radha Shaw [facility] [employer] [facility] 4 10:41:51 Date Recorded Body height Body mass index (BMI) Body weight Heart rate Respiratory rate Oxygen saturation Oxygen saturation in Arterial blood by Pulse oximetry Systolic blood pressure Diastolic blood pressure Provider Name and Address Organization Details Last Updated DateTime 4 170.18 cm 42.3 kg/m2 036056. 94 g 94 /min 14 /min 98 % 98 % 155 mm[Hg] 84 mm[Hg] Radha Shaw [facility] [employer] [facility] 4 10:53:35 Social History Question Answer Notes LastModified by Organizat ion Details LastModified Time Tobacco Smoking Status Former Smoker QUIT 12 YEARS AGO Yadira Parada RN null, [place] [facility] 08/24/2024 14:14:26 When Did You Quit Smoking? 11-15yearss [email or web address] [email or web address] [email or web address] Information not available 08/24/2024 Sex: Unknown Functional Status Question Answer Note LastModified by Organization D etails LastModified Time What is your level of alcohol consumption? None Information not available 10/13/2022 Mental Status None recorded. Family History Relationship Description Onset Age of this Age Resolved Age Notes LastModified by Organization Details LastModified Time Mother Family history of stroke [email or web address] Not available 2022 13:59:02 Mother Diabetes mellitus [email or web address] Not available 2022 13:59:11 Brother Hernia of anterior abdominal wall [email or web address] Not available 02/03 11:09:42 Son Nasal septoplasty [email or web address] Not available 08/06 14:13:11 Medical History Condition Response USE OF BLOOD THINNERS Y OBESITY Y HEART DISEASE/HEART PROBLEMS Y DIABETES, TYPE Y LUNG DISEASE/DISORDER Y HYPERTENSION Y COPD Y STROKE/TIA Y HIGH CHOLESTEROL / HYPERLIPIDEMIA Y Past Encounters Encounter ID Performer Location Encounter Start Date Encounter Closed Date Diagnosis/Indication Diagnosis SNOMED-CT Code Diagnosis ICD10 Code Diagnosis Note [id number] MD ALETA Brownlee[facility] [address] 02/25/2021 00:00:00 02/25/2021 12:42:50 [id number] Jose Luis Ivey MD [facility] [address] 06/10/2021 00:00:00 06/10/2021 11:46:46 [id number] MD ALETA [facility]lee[facility] [address] 06/24/2021 00:00:00 06/24/2021 11:39:50 [id number] MD RUBÉN Brownlee[facility] [address] 09/22/2021 00:00:00 09/22/2021 11:14:58 [id number] [facility] _ATHENA_M IGRATION_ DEFAULT_1 _1 , 10/31/2021 00:00:00 10/31/2021 11:56:07 [id number] [facility] _ATHENA_M IGRATION_ DEFAULT_1 _1 , 01/30/2022 00:00:00 01/30/2022 11:30:21 [id number] Otoniel Taylor MD [facility] [place] [address] [place] [address] 10/13/2022 13:46:15 10/13/2022 14:24:21 Pain of left hip joint 5449891721 19007 M25.552 Trochanter ic bursitis of left hip 8401628356 64014 M70.62 [id number] Otoniel Taylor MD [facility] [place] [address] [place] [address] 11/10/2022 13:33:04 11/10/2022 14:16:23 Trochanteric bursitis of left hip 8989140966 07376 M70.62 Morbid obesity 583427770 E66.01 [id number] Anshu Wiley DPM [facility] [place] [address] [place] [address] 12/07/2022 12:40:13 12/08/2022 10:11:34 Diabetes mellitus 49345437 E11.40 L60.3 L60.0 Z74.1 Continue PCP recommenda tions for glucose control Dystrophia unguium 54941 009 L60.3 Nails 1 through 10 were debrided with sharp mechanical debridemen t without incident. Nails were debrided and greater than 50% length and thickness where needed. [id number] Anshu Wiley DPM [facility] [place] [address] [place] [address] 03/15/2023 10:11:56 03/24/2023 11:58:40 Ingrowing nail of toe of right foot 9400621126 4624986 L60.0 right lateral corner great toeslant back procedure performedT reatment options reviewedIf continues to be problemati c will require partial matrixecto mykeep the area clean and covered until pain is completely resolved Diabetes mellitus 792795 09 E11.40 L60.3 L60.0 Z74.1 Continue PCP recommenda tions for glucose control Dystrophia unguium 78689 009 L60.3 Nails 1 through 10 were debrided with sharp mechanical debridemen t without incident. Nails were debrided and greater than 50% length and thickness where needed. [id number] Anshu Wiley DPM [facility] [place] [address] [place] [address] 06/14/2023 11:46:39 06/16/2023 16:36:53 Tinea pedis 7757237 B35.3 Left footContin ue daily foot hygieneRx miconazole powder Dystrophia unguium 35172 009 L60.3 Nails 1 through 10 were debrided with sharp mechanical debridemen t without incident. Nails were debrided and greater than 50% length and thickness where needed. Diabetes mellitus 586320 09 E11.40 L60.3 L60.0 Z74.1 Continue PCP recommenda tions for glucose control [id number] Anshu Wiley DPM [facility] [place] [address] [place] [address] 07/12/2023 11:00:24 07/12/2023 11:58:42 Tinea pedis 2335224 B35.3 Left footresolv edmay continue topical miconazole use daily with socks to prevent recurrence follow-up as needed [id number] Anshu Wiley DPM [facility] [place] [address] [place] [address] 10/18/2023 09:46:56 10/18/2023 10:50:24 Dystrophia unguium 13944966 L60.3 Nails 1 through 10 were debrided with sharp mechanical debridemen t without incident. Nails were debrided and greater than 50% length and thickness where needed. Obese 743581025 E66.9 recommend weight lossencour aged daily activities Diabetes mellitus 598409 09 E11.40 L60.3 L60.0 Z74.1 Continue PCP recommenda tions for glucose control [id number] Anshu Wiley DPM [facility] [place] [address] [place] [address] 01/17/2024 09:52:13 01/18/2024 13:07:30 Diabetes mellitus 97030286 E11.40 L60.3 L60.0 Z74.1 Continue PCP recommenda tions for glucose control Ingrowing nail of toe of right foot 6902911282 1037339 L60.0 right lateral corner great toeBoth corners problemati cslant back procedure performedT reatment options reviewedIf continues to be problemati c will require partial matrixecto mykeep the area clean and covered until pain is completely resolvedsc heduled for partial matrixecto my Dystrophia unguium 17357 009 L60.3 Nails 1 through 10 were debrided with sharp mechanical debridemen t without incident. Nails were debrided and greater than 50% length and thickness where needed. Umbilical hernia 7120485 07 K42.9 [id number] Steve jordan MD [facility] [place] General Surgery [address] [facility], [address] [address] 02/29/2024 11:01:19 03/02/2024 14:13:16 Umbilical hernia 769821318 K42.9 [id number] Anshu Wiley DPM [facility] [place] [address] [address] 04/04/2024 14:26:41 04/07/2024 10:39:32 Ingrowing nail of toe of right foot 5727895890 1550722 L60.0 right lateral corner great toepartial matrixecto my performed lateral sidewound care instructio sima givenPatie nt is to soak in warm Epsom salt soaks math for approximat julieta 20 min daily for 5-7 days until infection has resolved. Patient is to dress the wound daily with topical antibiotic ointment and Band-Aid. Patient to monitor for signs of infection, if worsens seek medical attention at the nearest ER.Follow- up in 10 days [id number] Anshu Wiley DPM [facility] [address] [place] [address] 04/17/2024 10:45:42 04/18/2024 13:23:56 Ingrowing nail of toe of right foot [id number] L60.0 right lateral corner great toepartial matrixecto my healing lateral sidesecond margarita to pain and wound with cellulitis total nail avulsion was performedw ound care instructio sima [place] nt is to soak in warm Epsom salt soaks math for approximat julieta 20 min daily for 5-7 days until infection has resolved. Patient is to dress the wound daily with topical antibiotic ointment and Band-Aid. Patient to monitor for signs of infection, if worsens seek medical attention at the nearest ER.Follow- up in 1 week Cellulitis of right foot [id number] L03.115 great toe - as above [id number] Anshu Wiley DPM [facility] [address] [place] [address] 04/24/2024 10:25:11 04/25/2024 13:54:38 Ingrowing nail of toe of right foot [id number] L60.0 right lateral corner great toepartial matrixecto my lateral side with complete nail avulsion secondary to infectionf inish [employer] ontinue daily wound carefollow -up 1 week Cellulitis of right foot [id number] L03.115 resolved Open wound of toe of right foot [id number] S91.101S as above [id number] Anshu Wiley DPM [facility] [address] [place] [address] 05/01/2024 10:30:24 05/02/2024 11:30:20 Open wound of toe of right foot [id number] S91.101S continue daily wound careRx gentamicin for dressing changes- 3 times dailyfollo w-up in 1 week [id number] Anshu Wiley DPM [facility] [place] [address] [place] [address] 05/08/2024 10:36:57 06/29/2024 14:56:45 Open wound of toe of right foot [id number] S91.101S healedfoll ow-up as needed [id number] Anshu Wiley DPM [facility] [place] [address] [place] [address] 08/17/2024 10:48:44 08/22/2024 13:57:33 Diabetes mellitus [id number] E11.40 L60.3 L60.0 Z74.1 Continue PCP recommenda tions for glucose control Dystrophia unguium 66468 009 L60.3 Nails 1 through 10 were debrided with sharp mechanical debridemen t without incident. Nails were debrided and greater than 50% length and thickness where needed. [id number] Braulio Romeo MD [facility] [address] [place] [address] 08/24/2024 13:59:11 08/24/2024 14:40:52 Eczema of external auditory canal [id number] H60.919 [id number] Anshu Wiley DPM [facility] [place] [address] [place] [address] 11/23/2024 10:45:23 11/24/2024 11:33:24 Diabetes mellitus [id number] E11.40 L60.3 L60.0 Z74.1 Continue PCP recommenda tions for glucose control Dystrophia unguium 94465 009 L60.3 Nails 1 through 10 were debrided with sharp mechanical debridemen t without incident. Nails were debrided and greater than 50% length and thickness where needed. Porokeratosis [id number] Q82.8 sub 5th metatarsal headdebrid ed without incidentma y utilize over-the-c ounter Amlactin and pumice stone to the areafollow -up as needed Pain in left foot 630493 [id number] 67733 M79.672 secondary to above Health Concerns Section Related Observation LastModified by Organization Danika valenzuela LastModified Time None Recorded Concern Status LastModified by Organization Details LastModified Time None Recorded Advance Directives Directive None Recorded Payers Insurance Date Sequence Insurance Name Policy Number Policy Wiley Covered Member ID Wiley Member ID Guarantor Name 02/29/2024 2 [facility] - DOS ON OR AFTER 21 (MEDICAID REPLACEMENT - HMO) Wolf Meléndez [id number] Wolf Meléndez 11/22/2024 1 [facility] (MEDICAID HMO) [id number] Wolf Meléndez [id number] Wolf Meléndez 02/29/2024 2 [facility] (MEDICARE REPLACEMENT/AD VANTAGE - HMO) Wolf Suhy [id number] Wolf Meléndez Notes Date Note Type Note Provider Name and Address Organization Details Recorded Time 05/01/2024 text/html . Patient is a 58-year-old male who returns the office for follow-up on right toe partial matrixectomy with wound to the lateral corner he overall is doing well he is slowly healing he has no continued cellulitis he has some mild discomfort to the area with some mild drainage. Patient denies any fever, chills, nausea vomiting. Patient denies any other complaints. Anshu Wiley DPM [address], [place], [address], [employer] 05/01/2024 11:37:50 05/08/2024 text/html . Patient is a 58-year-old male who returns the office for open wound to the right great toe secondary to chemical matrixectomy the wound is completely healed he states he is no longer having any pain swelling or drainage. Patient denies any other complaints. Anshu Wiley DPM [address], [place], [address], [employer] 05/08/2024 11:19:16 08/17/2024 text/html . Patient is a 59-year-old male diabetic who returns the office for diabetic foot care. Patient states overall he is doing well he denies any numbness tingling burning in the feet he denies any open wounds. Patient states his nails are long would like to have them cut. Patient denies any other complaints. Anshu Wiley DPM [address], [facility] [address], [place], [address], [employer] [facility] 08/22/2024 10:32:34 08/24/2024 text/html This patient has a past medical history significant for diabetes, obesity, carpal tunnel syndrome, heart disease, and cellulitis who presents to the office with a complaint of bilateral pruritus and dry skin to the external auditory canals that began approximately 3 weeks ago. He states that he has attempted to apply antibiotic ointment without relief of symptoms. Does report that he had a toenail removed and was prescribed a cream to prevent infection noting that he attempted to use this to his ears without relief of symptoms as well. He is unsure of what the medication was called. MAUDE Middleton [address], [facility] [address], [place], [address], [employer] 08/24/2024 14:40:27 11/23/2024 text/html . Patient is a 59-year-old male diabetic who presents the office with complaints of pain to the plantar 5th metatarsal left foot. Patient states he has a callus that formed and has sharp pain with walking. Patient denies any open wounds or infection. Patient states his toenails are also elongated would like to have them cut. Patient denies any other complaints. Anshu Wiley DPM [address], [facility] [address], [place], [address], [employer] [facility] [employer] [facility] 11/23/2024 11:08:33
--- OUTSIDE RECORDS SUMMARY | 2024-12-18 01:11 | XMS_ITS | CONTINUITY OF CARE DOCUMENT ---
Author Name srini, srini Address Unknown Organization [facility] Address [address] [place] [address] Phone [phone] Care Team Providers Care Inventory Associate Name Role Phone Karin Dior MD Unavailable [phone] BEN HERNDON Unavailable [phone] BEN HERNDON Unavailable PROBLEMS Condition Status Date Provider Notes COPD active Sachin Myrick HTN active Karin Dior MD Hx of Cardiomyopathy active Karin mckay MD Sleep apnea, obstructive - on CPAP active Sandy Dior MD Diabetes mellitus active Karin Dior MD Hyperlipidemia active Karin Dior MD Obesity active Karin Dior MD PVC's active Karin Dior MD Tobacco use, quit active [facility] ENCOUNTERS Date Type Provider Location Encounter Diag nosis - In-person encounter Office Visit Karin Dior MD [place] [facility] - In-person encounter Office Visit Karin Dior MD [place] [facility] Hx of CardiomyopathySleep apnea, obstructive - on CPAPPVC'sTobacco use, quit - In-person encounter Office Visit Karin Dior MD [place] [facility] HTNHx of CardiomyopathySleep apnea, obstructive - on CPAPDiabetes mellitusHyperlipidemiaObesity VITAL SIGNS Date Observation Value Provider Body Mass Index (Ratio) 39.95 kg/m2 James Dior MD blood pressure, diastolic 80 mm[Hg] Yan louie Reyes blood pressure, systolic 140 mm[Hg] Vijaya dallas [place] oxygen saturation, oximetry 93 % Seaman Reyes respiratory rate E&M 16 /min Constance Reyes pulse rate 70 /min Seaman Reyes weight E&M 262.8 [lb_av] Seaman Eryes height E&M 68 [in_i] [facility] Body Mass Index (Ratio) 40.44 kg/m2 Peña Colindres blood pressure, resting Yes Peña Colind[place] blood pressure, cuff size large Ke phillyi Silvestre blood pressure, diastolic 83 mm[Hg] Ke rri Silvestre blood pressure, systolic 143 mm[Hg] Alonso Rivers oxygen saturation, oximetry 93 % Anna Rivers respiratory rate E&M 16 /min Anna Anne [place] pulse rate 79 /min Anna June [facility] weight E&M 266 [lb_av] Anna June [facility] height E&M 68 [in_i] Anna June [facility] blood pressure, diastolic 106 mm[Hg] Ke [...] RELEASE completed take one cha day - Constance Reyes LIPITOR 20 MG ORAL TABLET completed take one pill a day - Seaman Reyes METFORMIN HCL 1000 MG ORAL TABLET [...] Karin Dior MD alcohol use no Constance [place] smoking, year quit 2009 Constance Bishop jesu number of years as a smoker 25 a Constance [place] smoking history, tot al pack/day 3 [facility] cigarette use yes [facility]Taylor [facility] smoking status Former smoker Contsance [facility] social history reviewed E&M revi ewed - [...] revi ewed - no changes required Karin iDor MD alcohol use no Anna Watkins ahmeter [...] Payer name Policy type / Coverage type Alpha red green party ID [place] Medicaid [id number] ADVANCE DIRECTIVES Name Date DISCUSSED - NO [...] [facility] Follow up :Orders: S NOMED-CT: [id number] Current Medications Documented ([id number]) obile Cardiac Tele (CPT-82282) His updated medication list for this problem [...] [facility] Follow up :Orders: S NOMED-CT: [id number] Current Medications Documented ([id number]) E KG (CPT-75635) obile Cardiac Tele (CPT-86226) His updated medication list for this problem [...] Duglas Gilman faxed 04/14/16:Orders: Renal Artery Duplex (CPT-29880) BP today: 180/106 His updated medication list [...] 02/15 showed EF 55%. Will repeat echo Karin Dior MD Date Name DLCO - 74846 FRC - 29222 FVC - 74349 ZIO Event Complete Echo Mobile Cardiac Tele Sleep Study Titratio n Renal Artery Duplex Complete Echo HISTORY OF PROCEDURES Procedure Date Procedure Name Provider Procedure Notes S tatus FVC / MVV with bronchodilator - 11006 Karin Dior MD completed BLOOD COUNT HEMOGLOBIN Karin ragland MD completed FRC - 40387 Karin ramirez MD completed SpO2 w/o 6min walk/titration Karin Dior MD completed DLCO - 85728 Karin ramirez MD completed EKG Karin ramirez MD completed SNOMED-CT: 151020198273993 Current Medications Documented Karin Dior MD completed Event Monitor Karin ramirez MD completed SNOMED-CT: 31815424 Physical Exam, Performed: Pulse Exam of Foot Karin Dior MD completed EKG Karin ramirez MD completed SNOMED-CT: 447111077049612 Current Medications Documented Karin Dior MD completed SNOMED-CT: 22232717 Physical Exam, Performed: Pulse Exam of Foot Karin Dior MD completed EKG Karin ramirez MD completed SNOMED-CT: 812215567226008 Current Medications Documented Karin Dior MD completed
--- OUTSIDE RECORDS SUMMARY | 2024-12-18 01:11 | XMS_ITS | Clinical Summary ---
Author Organization [facility] Address [address] [place] [address] Care Team Providers Care Finish Off Operator Name Role Phone Mike Taylor APRN-WOOL WASHER FEEDER Primary Care Provider Source Comments [facility],non-owned Affiliates and Associated Physician Practices is amultiple site organization consisting of ambulatory clinics and hospital sitesin [place], [place], [place] and [place]. This disclosure is being madepursuant to the Care Everywhere program and may not contain all information available regarding this patient. Last updated 18.[employer] Allergies No known active allergies Medications * Be aware that medications may not be up to date on this document. Alwaysverify current medications with the patient. 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 When [...] 02/15/2019 Assessment & Plan (05/20/2020 10:07 AM ESTATE CONSERVATOR): Plans for closure in follow up with [...] 02/15/2019 Assessment & Plan (05/20/2020 10:09 AM ESTATE CONSERVATOR): ASA, statin, and Plavix, plan PFO closure per Dr. Solano in follow up. Await Recs. Assessment & Plan (12/20/2019 5:45 PM CDT): ASA, statin, and Plavix, plan PFO closure when able do preform elective procedures gain in light of COVID-19. Status post placement of implantable loop record er 02/15/2019 Assessment & Plan (05/20/2020 10:08 AM ESTATE CONSERVATOR): No events. Follow. Assessment & Plan (02/19/2020 [...] coreg Assessment & Plan (05/20/2020 10:07 AM ESTATE CONSERVATOR): Per Pt report his BP is closer [...] 1:22 PM CDT - Present Hospital Encounter [facility] [address] [place] [address] Ghulam Mckay MD Internal Medicine from Last [...] 36.2 C (97.2 F) 09/11/2020 8:53 AM ESTATE CONSERVATOR Respiratory Rate 18 10/24/2018 3:57 PM CDT [...] this topic Medical Devices Implanted Type Area Whizzer Hand Device Identifier Shelf Expiration Date Model / Serial / Lot Sys Crd Mntr Rvl Linq [employer] Ins - [id number] Implanted:Qty: 1 on 11/02/2018 by Demar Solano MD at [facility] Chest [employer] 06/01/2019 LINQSYS / [id number] / Description:Reveal loop suleiman rder Procedures * [...] - 26 mg/dL 10/23/2018 7:35 AM CDT [facility] Creatinine 0.8 0.6 - 1.2 mg/dL 10/23/2018 7:35 AM [facility] Sodium 137 136 - 145 mmol/L 10/23/2018 7:35 AM [facility] Potassium 4.3 3.5 - 4.5 mmol/L 10/23/2018 7:35 AM [facility] Chloride 97(L) 98 - 107 mmol/L 10/23/2018 7:35 AM [facility] CO2 30(H) 22 - 29 mmol/L 10/23/2018 7:35 AM [facility] Glucose 138(H) 70 - 115 mg/dL 10/23/2018 7:35 AM [facility] Calcium 9.6 8.4 - 10.2 mg/dL 10/23/2018 7:35 AM [facility] Anion Gap 14 8 - 18 10/23/2018 7:35 AM [facility] BUN/Creatinine Ratio 15 7 - 23 10/23/2018 7:35 AM [facility] Osmolality Calculated 286 270 - 300 mOsm/kg 10/23/2018 7:35 AM [facility] eGFR >60 >60 mL/min/1.7 3 m2 10/23/2018 7:35 AM [facility] Blood BLOOD SPECIMEN / Unknown Lab Venipuncture / Unknown 10/23/2018 7:05 AM T 10/23/2018 7:[address] [facility] us Tere Salguero MD LAB - CHEMISTRY ORDERABLE S Final Result [address] [phone] * (ABNORMAL) HEMOGLOBIN A1C (10/21/2018 9:[address] [facility]) Hemoglobin A1c 7.3(H) 4.4 - 6.3 % 10/21/2018 2:45 PM [facility] Estimated Average Glucose 163 mg/dL 10/21/2018 2:45 PM [facility] Comment: HbA1c Interpretation: Treatment target values recommended by ADA and other clinical organizations should be used to evaluate metabolic control in patients. Treatment Target Values: Normal : < 5.7% Pre-diabetes: 5.7-6.4% Diabetes: Equal to or greater than 6.5% Reference: [place] Diabetes Association Standards of Care in Diabetes -2014 In patients 70 years and older consider HbA1c target range of 7.0-7.5% Reference: Diabetes Mellitus in Older People: Position Statement on behalf of the International Association of Gerontology and Geriatrics (IAGG), the Diabetes Working Libertarian for Older People (EDWPOP), and the International Task Force of Experts in Diabetes. Dario Cox et al. J [place] Medical Directors Association. 2012 Test results diagnostic of diabetes should be repeated for confirmation. The Sebia Capillary 2 assay for the measurement of HbA1c is a National Glycohemoglobin Standardization Program (NGSP)certified method. Blood BLOOD SPECIMEN / Unknown Venipuncture / Unknown 10/21/2018 9:31 AM CDT 10/21/2018 9:33 AM CDT Cisco Lion MD LAB - CHEMISTRY ORDERABLES Final Result Performing Organization Address City/State/[facility] Co de Phone Number [address] [phone] from Last 3 Months or Most Recently Relevant to Health Maintenance Insurance [facility] Advance Directives * Full Code (Latest Code Status on File) Date Activated Date Inactivated Comments 10/21/2018 8:40 AM 10/24/2018 7:15 PM Care Teams Finish Off Operator Relationship Specialty Start Date End Date Mike Taylor, METAL SASH SETTER-WOOL WASHER FEEDER [address] [place] [address] PCP - General Nurse Practitioner 10/21/18
--- OUTSIDE RECORDS SUMMARY | 2024-12-18 01:11 | XMS_ITS | Clinical Summary ---
Author Organization [facility] Address [address] [address] Phone Care Team Providers Care Community Placement Worker Name Role Phone Robert Taylor Primary Care [...] of Treatment Not on file Insurance MEDICAID [place] Advance Directives * Full Code (Latest Code Status on File) Date Activated Date Inactivated Comments 11/09/2018 10:19 AM Care Teams Community Placement Worker Relationship Specialty Start Date End Date Robert Taylor PA [address] [place] [address] PCP - General Physician Bran Mixer 10/25/18
--- NOTE | 2024-12-18 08:52 | WPDHPUPDATE1 ---
History and Physical Update Update Date/Time: 12/18/24 08:52 History and Physical has been reviewed, including an updated exam of the patient. There are NO changes in the patient's condition. Risks, benefits, and alternatives have been discussed and questions answered. Patient agrees to proceed with procedure.
--- NOTE | 2024-12-18 08:54 | WPDANESEPPF ---
Anes - Initial Pre Proc Eval Procedure: Operation Date: 12/18/24 11:00 Proposed Procedures p Right Knee Arthroscopy, Partial Meniscectomy, Proceed As Indicated - Otoniel Taylor MD Date/Time: 12/18/24 08:54 Surgeon: Otoniel Taylor MD Pre Op Diagnosis: right medial meniscal tear Patient Data Age: 59 Gender: M Height: 1.7 m Weight: 110 kg Allergies Allergy/AdvReac Type Severity Reaction Status Date / Time No Known Allergies Allergy Unverified 12/18/24 09:09 Home Medications ?Medication ?Instructions ?Recorded ?Confirmed ?Type albuterol sulfate 90 mcg/actuation 1 puff inhalation Q4H PRN 11/02/24 12/07/24 History aerosol inhaler (Ventolin HFA) shortness of breath or wheezing aripiprazole 2 mg tablet 2 mg PO DAILY 11/02/24 12/18/24 History atorvastatin 80 mg tablet (Lipitor) 80 mg PO DAILY 11/02/24 12/18/24 History empagliflozin 25 mg tablet 25 mg PO DAILY 11/02/24 12/18/24 History (Jardiance) fluticasone 250 mcg-salmeterol 50 1 inh inhalation BID 11/02/24 12/18/24 History mcg/dose blistr powdr for inhalation (Advair Diskus) levetiracetam 500 mg tablet 500 mg PO DAILY 11/02/24 12/18/24 History losartan 100 mg tablet 100 mg PO DAILY 11/02/24 12/18/24 History metformin 500 mg tablet 1,000 mg PO BID 11/02/24 12/18/24 History omeprazole 20 mg capsule,delayed 20 mg PO DAILY 11/02/24 12/18/24 History release hydrocodone 5 mg-acetaminophen 325 1 tablet PO Q4H PRN pain #30 tabs 12/18/24 Rx mg tablet Patient hx anesthesia problems: none Family hx anesthesia problems: none Results Review: All pre-operative results and documents have been reviewed as part of the pre-operative evaluation. [facility] Past Medical History Medical History (Updated 12/18/24 @ 08:55 by Olivier Marshall DO) Diabetes type 2, controlled [place] (obstructive sleep apnea) COPD (chronic obstructive pulmonary disease) History of heart attack Seizure CVA (cerebral vascular accident) Family History Family History (Reviewed 11/14/24 @ 07:58 by Nichelle Montanez [facility]) Mother Cerebrovascular accident Grandparent Cerebrovascular accident Social History Social History (Updated 11/14/24 @ 10:46 by Shantal Banegas [facility]) Smoking packs per day: 3 Smoking cigarettes per day: 60.0 Years smoked: 29 Smoking pack-years: 87.00 Smoking status: Former smoker Tobacco type: cigarettes Smoking end date: 12/07/10 Alcohol intake: former Alcohol use details: 30 years. Substance use: current Substance use type: marijuana Other substance usage details: Daily Do You Feel Safe in your Home?: Yes Lack of Transportation: No Lack of Food: Sometimes True Current Housing: I Have Housing Concerned About Future Housing: No Difficulty Paying Gas/Electric Bills: No Difficulty Paying for Meds: No Currently Unemployed: No Education: High School Diploma/GED Difficulty w/ Childcare or Family Care: No Living arrangements: with family Spiritual care concerns: No Anes - Eval Final PreProcedure Day of Procedure 12/18/24 08:54 Patient weight: obese Heart: regular rate and rhythm Lungs: clear to auscultation Airway: Mallampati scale class III Neurological: alert and oriented Last oral intake: >/= 8 hours ASA classification: IV Emergent: no Anesthetic plan: proceed Anesthesia type and monitoring: general LMA and standard monitoring Results Review: All pre-operative results and documents have been reviewed as part of the pre-operative evaluation. Informed Consent: The patient's anesthetic plan and its attendant risks and benefits were discussed with the patient/family/POA. Questions were solicited and answers provided to the satisfaction of the patient/family/POA.
[2024-12-18] MEDS: ACETAMINOPHEN 500 MG TABLET 1000 MG PO (09:16)
[2024-12-18] MEDS: KETOROLAC 15 MG/ML VIAL (*BKC) IV PUSH (09:26)
[2024-12-18 09:29] LABS: Glucose Point of Care 144 mg/dl (65-105)
[2024-12-18] MEDS: ceFAZolin 2 GM/D5W 50 ML 2 GM/50 ML BAG IVPB (10:23)
[2024-12-18] MEDS: LIDO 1%/EPINEPHRINE 1:100,000 20 ML VIAL INFILTRATE (10:50)
--- NOTE | 2024-12-18 10:57 | P.OP_ITS ---
Procedure Note - Detailed Date of Procedure 12/18/24 Pre-op Diagnosis Right medial meniscal tear Post-op Diagnosis Same Procedure Performed RIGHT knee arthroscopy with partial meniscectomy Surgeon Otoniel Taylor MD Anesthesia General Indications Pain, Locking and Catching Description of Procedure Patient brought to operating room #7. An anesthetic was administered. The knee was sterilely prepped and draped in the usual manner. Standard portals were used. Superior medial portal was used for the outflow cannula, inferior lateral portal was used for the scope, inferior medial portal was used for the instruments. Arthroscopy was performed, the patellar femoral joint degenerative changes. The medial compartment showed a complex tear. The lateral compartment showed fraying. The ACL was intact. Using baskets and rola the meniscal tear was trimmed back to a stable base so the nothing further could be pulled into the joint. Any loose or delaminated fragments were gently trimmed to a stable base. At this point the instruments were withdrawn, sutures placed and patient left the operating room in satisfactory condition. Estimated Blood Loss 20 Drains No Packing No Pathology None sent Complications No immediate complications Condition Stable Disposition PACU [facility] Billing Surgery - Charge Forward: Surgery Billing ([id number] [facility])
[2024-12-18] MEDS: LACTATED RINGERS 1,000 ML 30 ML IV CONT (11:08)
== END 2024-12-18 12:32 | disposition home or self-care (01) ==
PROVIDERS: PCP Internal Medicine Gastroenterology; Visit Provider Orthopaedic Surgery
PROC: (CPT 29870; principal; 2024-12-18 11:00)
DX: S83.231A Complex tear of medial meniscus, current injury, right knee, initial encounter (principal); X58.XXXA Exposure to other specified factors, initial encounter; E11.9 Type 2 diabetes mellitus without complications; Z87.891 Personal history of nicotine dependence; F12.90 Cannabis use, unspecified, uncomplicated; E66.9 Obesity, unspecified; Z68.38 Body mass index [BMI] 38.0-38.9, adult
CPT/HCPCS: 29881; 82948; A9270; J0690; J1100; J1885; J1938; J2003; J2004; J2250; J2405; J2704; J3010; J7120